=== PATIENT | female | born 1975 | race Caucasian/White ===

== ENCOUNTER 2018-07-12 01:01 | Emergency (ER) | payer OTHER ==
[2018-07-12] MEDS ORDERED: MAG HYDROX/AL HYDROX/SIMETH SUSP 30 ML UDCUP PO ONE (02:18)
[2018-07-12] MEDS ORDERED: METOCLOPRAMIDE HCL ORAL SOLN 10 MG/10 ML UDCUP PO ONE (02:18)
[2018-07-12] MEDS ORDERED: LIDOCAINE 2% VISCOUS SOLN 20 ML UDCUP PO ONE (02:18)
--- NOTE | 2018-07-12 02:28 | ER Document Report ---
ED General - General Mode of Arrival: Ambulatory Information source: Patient TRAVEL OUTSIDE OF THE [place] IN LAST 30 DAYS: No <HILL HAJI - Last Filed: 07/12/18 02:23> <CANDIDORC Maloney - Last Filed: 07/15/18 10:59> - General Chief Complaint: Abdominal Pain Stated Complaint: ABDOMINAL PAIN Time Seen by Provider: 07/12/18 02:17 Notes: Patient is a 43-year-old female presenting to the emergency department complaining of abdominal pain worsening a few days ago. Patient states that she has had similar abdominal pain for approximately 1 year but over the last couple of days it has progressively worsened. She describes the pain as a sharp and stabbing pain in her upper abdomen. She also complains of nausea and diarrhea and further states that she has bright red and dark red blood in her stool. There is a patient states that she does not feel as if her symptoms are related to heartburn further stating she does not have a burning sensation is or sour taste in her mouth. Patient denies any fevers or vomiting. Patient has a history of pancreatitis. (HILL HAJI) - Related Data Allergies/Adverse Reactions: penicillin G [Penicillin G] Allergy (Unverified 10/26/11 00:27) Past Medical History - General Information source: Patient - Social History Smoking Status: Current Every Day Smoker Chew tobacco use (# tins/day): No Frequency of alcohol use: None Drug Abuse: None Family History: CAD, Malignancy Patient has suicidal ideation: No Patient has homicidal ideation: No Neurological Medical History: Reports: Hx Migraine. Denies: Hx Seizures Musculoskeletal Medical History: Reports Hx Musculoskeletal Deformity, Reports Hx Musculoskeletal Trauma Traumatic Medical History: Reports: Hx Fractures Past Surgical History: Reports: Hx Cholecystectomy, Hx Genitourinary Surgery, Hx Gynecologic Surgery - right tube and ovary removed, Hx Hysterectomy, Hx Orthopedic Surgery - back fusion, carpal tunnel, Hx Tubal Ligation - Immunizations Immunizations up to date: Yes Hx Diphtheria, Pertussis, Tetanus Vaccination: Yes <HILL HAJI - Last Filed: 07/12/18 02:23> Review of Systems - Review of Systems Constitutional: No symptoms reported EENT: No symptoms reported Cardiovascular: No symptoms reported Respiratory: No symptoms reported Gastrointestinal: See HPI, Abdominal pain, Nausea, Blood streaked bowels Genitourinary: No symptoms reported Female Genitourinary: No symptoms reported Musculoskeletal: No symptoms reported Skin: No symptoms reported Hematologic/Lymphatic: No symptoms reported Neurological/Psychological: No symptoms reported -: Yes All other systems reviewed and negative <HILL HAJI - Last Filed: 07/12/18 02:23> Physical Exam <HILL HAJI - Last Filed: 07/12/18 02:23> <RC REY Amara - Last Filed: 07/15/18 10:59> - Vital signs Vitals: Temp Pulse Resp BP Pulse Ox 98.1 F 74 16 112/71 97 07/12/18 01:02 07/12/18 01:02 07/12/18 01:02 07/12/18 01:02 07/12/18 01:02 - Notes Notes: GENERAL: Alert, interacts well. No acute distress. HEAD: Normocephalic, atraumatic. EYES: Pupils equal, round, and reactive to light. Extraocular movements intact. ENT: Oral mucosa moist, tongue midline. NECK: Full range of motion. Supple. Trachea midline. LUNGS: Clear to auscultation bilaterally, no wheezes, rales, or rhonchi. No respiratory distress. HEART: Regular rate and rhythm. No murmurs, gallops, or rubs. ABDOMEN: Soft, RUQ and epigastric regions tender palpation. Non-distended. Bowel sounds present in all 4 quadrants. EXTREMITIES: Moves all 4 extremities spontaneously. NEUROLOGICAL: Alert and oriented x3. Normal speech. PSYCH: Normal affect, normal mood. SKIN: Warm, dry, normal turgor. No rashes or lesions noted. (HILL HAJI) Course <HILL HAJI - Last Filed: 07/12/18 02:23> - Laboratory Result Diagrams: 07/12/18 02:37 07/12/18 02:37 <RC REY Amara - Last Filed: 07/15/18 10:59> - Re-evaluation Re-evalutation: 07/12/18 03:40 Patient's labs show no acute abnormalities. She states the symptoms have been going on for approximately a year and a half intermittently and over the last several days she has experienced more severe flare. Instructed her that I will provide her nausea medication as well as zantac and she is to comply to a low- fat low acidic diet to see if this helps. If her symptoms are continuing I will provide her community care referral for further outpatient evaluation. Return precautions provided (RC REY) - Vital Signs Vital signs: Temp Pulse Resp BP Pulse Ox 97.6 F 74 16 140/85 H 97 07/12/18 04:08 07/12/18 04:08 07/12/18 04:08 07/12/18 04:08 07/12/18 04:08 Discharge <HILL HAJI - Last Filed: 07/12/18 02:23> <RC REY - Last Filed: 07/15/18 10:59> - Discharge Clinical Impression: Epigastric abdominal pain Condition: Good Disposition: HOME, SELF-CARE Instructions: Abdominal Pain ([facility]), Antinausea Medication ([facility]), Low-Fat Diet ( [facility]) Prescriptions: Ondansetron [Zofran Odt 4 mg Tablet] 1 tab PO Q4H PRN #15 tab.rapdis PRN Reason: For Nausea/Vomiting Ranitidine HCl [Zantac] 150 mg PO BID #60 tablet Referrals: [facility] [Outside] - Follow up as needed Scribe Attestation: 07/15/18 10:59 I personally performed the services described in the documentation, reviewed and edited the documentation which was dictated to the scribe in my presence, and it accurately records my words and actions. (RC REY) Scribe Documentation - Scribe Written by Yoseline:: Nasra Lim, 07/12/2018 02:26 acting as scribe for :: Candido <HILL HAJI - Last Filed: 07/12/18 02:23>
[2018-07-12 02:50] LABS: ABSOLUTE BASOPHILS # (AUTO) 0.1 10^3/uL (0.0-0.2); ABSOLUTE EOSINOPHILS # (AUTO) 0.1 10^3/uL (0.0-0.6); ABSOLUTE LYMPHOCYTES (AUTO) 1.5 10^3/uL (0.5-4.7); ABSOLUTE MONOCYTES (AUTO) 0.6 10^3/uL (0.1-1.4); ABSOLUTE NEUT (AUTO) 6.9 10^3/uL (1.7-8.2); BASOPHILS % (AUTO) 1.2 % (0-2); EOSINOPHILS % (AUTO) 1.6 % (0-6); HEMATOCRIT 39.6 % (36.0-47.0); HEMOGLOBIN 13.7 g/dL (12.0-15.5); LYMPHOCYTES % (AUTO) 16.6 % (13-45); MEAN CORPUSCULAR HEMOGLOBIN 28.5 pg (27.0-33.4); MEAN CORPUSCULAR HGB CONC 34.6 g/dL (32.0-36.0); MEAN CORPUSCULAR VOLUME 82 fl (80-97); MONOCYTES % (AUTO) 6.6 % (3-13); PLATELET COUNT 164 10^3/uL (150-450); RED CELL DISTRIBUTION WIDTH 13.6 % (11.5-14.0); TOTAL CELLS COUNTED % (AUTO) 100 %; WHITE BLOOD COUNT 9.3 10^3/uL (4.0-10.5)
[2018-07-12 03:07] LABS: ALANINE AMINOTRANSFERASE 17 U/L (9-52); ALKALINE PHOSPHATASE 61 U/L (38-126); ANION GAP 11 (5-19); ASPARTATE AMINO TRANSFERASE 14 U/L (14-36); BILIRUBIN,DIRECT 0.2 mg/dL (0.0-0.4); BILIRUBIN,TOTAL 0.4 mg/dL (0.2-1.3); BLOOD UREA NITROGEN 11 mg/dL (7-20); CALCIUM 9.6 mg/dL (8.4-10.2); CARBON DIOXIDE 29 mmol/L (22-30); CHLORIDE 104 mmol/L (98-107); GLUCOSE 110 mg/dL (75-110); POTASSIUM 4.1 mmol/L (3.6-5.0); SODIUM 143.6 mmol/L (137-145); TOTAL PROTEIN 6.7 g/dL (6.3-8.2)
[2018-07-12] MEDS ORDERED: HYDROCODONE/ACETAMINOPHEN 5-325 MG TABLET PO ONE (03:49)
[2018-07-12 04:09] VITALS: BP 140/85
== END 2018-07-12 04:11 | disposition home or self-care (01) ==
LOC: ER 01:01
DX: R10.13 Epigastric pain (principal); R11.0 Nausea; R19.7 Diarrhea, unspecified; R19.5 Other fecal abnormalities; F17.200 Nicotine dependence, unspecified, uncomplicated
CPT/HCPCS: 99284; 36415; 83690; 84703; 85025; 80053; J3490

== ENCOUNTER 2018-09-30 20:15 | Emergency (ER) | payer SELFPAY ==
[2018-09-30 21:27] LABS: ABSOLUTE LYMPHOCYTES (AUTO) 0.7 10^3/uL (0.5-4.7); ABSOLUTE MONOCYTES (AUTO) 0.4 10^3/uL (0.1-1.4); ABSOLUTE NEUT (AUTO) 2.8 10^3/uL (1.7-8.2); BASOPHILS % (AUTO) 0.4 % (0-2); HEMATOCRIT 36.8 % (36.0-47.0); HEMOGLOBIN 12.6 g/dL (12.0-15.5); LYMPHOCYTES % (AUTO) 16.6 % (13-45); MEAN CORPUSCULAR HEMOGLOBIN 28.3 pg (27.0-33.4); MEAN CORPUSCULAR HGB CONC 34.3 g/dL (32.0-36.0); MEAN CORPUSCULAR VOLUME 83 fl (80-97); MONOCYTES % (AUTO) 11.2 % (3-13); PLATELET COUNT 134 10^3/uL (150-450); RED BLOOD COUNT 4.46 10^6/uL (3.72-5.28); RED CELL DISTRIBUTION WIDTH 13.7 % (11.5-14.0); SEGMENTED NEUTROPHILS % (AUTO) 70.8 % (42-78); TOTAL CELLS COUNTED % (AUTO) 100 %
[2018-09-30 21:39] LABS: ALANINE AMINOTRANSFERASE 39 U/L (9-52); ALBUMIN 3.9 g/dL (3.5-5.0); ALKALINE PHOSPHATASE 65 U/L (38-126); ANION GAP 5 (5-19); ASPARTATE AMINO TRANSFERASE 25 U/L (14-36); BILIRUBIN,DIRECT 0.2 mg/dL (0.0-0.4); BILIRUBIN,TOTAL 0.5 mg/dL (0.2-1.3); BLOOD UREA NITROGEN 8 mg/dL (7-20); CALCIUM 8.9 mg/dL (8.4-10.2); CARBON DIOXIDE 32 mmol/L (22-30); CHLORIDE 101 mmol/L (98-107); GLUCOSE 102 mg/dL (75-110); POTASSIUM 3.9 mmol/L (3.6-5.0); SODIUM 137.8 mmol/L (137-145); TOTAL PROTEIN 6.2 g/dL (6.3-8.2)
[2018-09-30 21:41] LABS: APPEARANCE,URINE SLIGHTLY-CLOUDY; BILIRUBIN,URINE SMALL (NEGATIVE); COLOR,URINE YELLOW; GLUCOSE, URINE NEGATIVE (NEGATIVE); KETONES,URINE NEGATIVE (NEGATIVE); LEUKOCYTE ESTERASE,URINE NEGATIVE (NEGATIVE); NITRITE,URINE NEGATIVE (NEGATIVE); PROTEIN,URINE 30 mg/dL (NEGATIVE); URINE SPECIFIC GRAVITY 1.024
[2018-09-30] MEDS ORDERED: NORMAL SALINE 1000 ML 1,000 ML IV ONE (22:09)
[2018-09-30] MEDS ORDERED: ONDANSETRON HCL INJ/PF 4 MG/2 ML SDV IV ONE (22:09)
--- NOTE | 2018-09-30 22:11 | ER Document Report ---
ED Medical Screen (RME) - General Chief Complaint: Nausea/Vomiting Stated Complaint: VOMITING Time Seen by Provider: 09/30/18 22:08 Notes: Patient is a 43-year-old female presents to the emergency department for 24 hours of vomiting. Patient states she has vomited upwards of 20 times in the last 24 hours is now dry heaving. Patient notes no blood in her emesis. Patient is denying any diarrhea and states she does have a subjective fever. Patient is denying dysuria or vaginal discharge. Patient states she has generalized muscle cramping. Patient states that started after her vomiting. Past medical history: None Medications: None Allergies: Penicillin Surgical history: Hysterectomy, cholecystectomy ABDOMEN: Soft, generalized tenderness mostly upper left quadrant. Non- distended. Bowel sounds present in all 4 quadrants. No CVA tenderness bilaterally. No McBurney's point tenderness, no Michael sign noted. I have greeted and performed a rapid initial assessment of this patient. A comprehensive ED assessment and evaluation of the patient, analysis of test results and completion of the medical decision making process will be conducted by additional ED providers. TRAVEL OUTSIDE OF THE [place] IN LAST 30 DAYS: No - Related Data Allergies/Adverse Reactions: penicillin G [Penicillin G] Allergy (Unverified 10/26/11 00:27) Past Medical History - Social History Chew tobacco use (# tins/day): No Frequency of alcohol use: None Drug Abuse: None Neurological Medical History: Reports: Hx Migraine. Denies: Hx Seizures Renal/ Medical History: Denies: Hx Peritoneal Dialysis Musculoskeltal Medical History: Reports Hx Musculoskeletal Deformity, Reports Hx Musculoskeletal Trauma Traumatic Medical History: Reports: Hx Fractures Past Surgical History: Reports: Hx Cholecystectomy, Hx Genitourinary Surgery, Hx Gynecologic Surgery - right tube and ovary removed, Hx Hysterectomy, Hx Orthopedic Surgery - back fusion, carpal tunnel, Hx Tubal Ligation - Immunizations Immunizations up to date: Yes Hx Diphtheria, Pertussis, Tetanus Vaccination: Yes Physical Exam - Vital signs Vitals: Temp Pulse Resp BP Pulse Ox 98.6 F 80 16 134/81 H 96 09/30/18 20:44 09/30/18 20:44 09/30/18 20:44 09/30/18 20:44 09/30/18 20:44 Course - Vital Signs Vital signs: Temp Pulse Resp BP Pulse Ox 98.6 F 80 16 134/81 H 96 09/30/18 20:44 09/30/18 20:44 09/30/18 20:44 09/30/18 20:44 09/30/18 20:44 - Laboratory Result Diagrams: 09/30/18 21:15 09/30/18 21:15 Laboratory results interpreted by me: 09/30/18 09/30/18 09/30/18 21:15 21:15 21:15 Plt Count 134 L Carbon Dioxide 32 H Total Protein 6.2 L Urine Protein 30 H Urine Bilirubin SMALL H Urine Urobilinogen 4.0 H
[2018-09-30] MEDS ORDERED: KETOROLAC TROMETHAMINE INJ/PF 30 MG/1 ML SDV IV ONE (22:12)
--- NOTE | 2018-09-30 23:09 | ER Document Report ---
ED General - General Chief Complaint: Nausea/Vomiting Stated Complaint: VOMITING Time Seen by Provider: 09/30/18 22:08 Notes: Patient is a 43-year-old female presents to the emergency department for 24 hours of vomiting. Patient states she has vomited upwards of 20 times in the last 24 hours is now dry heaving. Patient notes no blood in her emesis. Patient is denying any diarrhea and states she does have a subjective fever. Patient is denying dysuria or vaginal discharge. Patient states she has generalized muscle cramping abd pain. Patient states that started after her vomiting. Past medical history: None Medications: None Allergies: Penicillin Surgical history: Hysterectomy, cholecystectomy TRAVEL OUTSIDE OF THE [place] IN LAST 30 DAYS: No - Related Data Allergies/Adverse Reactions: penicillin G [Penicillin G] Allergy (Unverified 10/26/11 00:27) Past Medical History - General Information source: Patient - Social History Smoking Status: Current Every Day Smoker Chew tobacco use (# tins/day): No Frequency of alcohol use: None Drug Abuse: None Family History: CAD, Malignancy Patient has suicidal ideation: No Patient has homicidal ideation: No Neurological Medical History: Reports: Hx Migraine. Denies: Hx Seizures Renal/ Medical History: Denies: Hx Peritoneal Dialysis Musculoskeletal Medical History: Reports Hx Musculoskeletal Deformity, Reports Hx Musculoskeletal Trauma Traumatic Medical History: Reports: Hx Fractures Past Surgical History: Reports: Hx Cholecystectomy, Hx Genitourinary Surgery, Hx Gynecologic Surgery - right tube and ovary removed, Hx Hysterectomy, Hx Orthopedic Surgery - back fusion, carpal tunnel, Hx Tubal Ligation - Immunizations Immunizations up to date: Yes Hx Diphtheria, Pertussis, Tetanus Vaccination: Yes Review of Systems - Review of Systems Constitutional: See HPI EENT: No symptoms reported Cardiovascular: No symptoms reported Respiratory: No symptoms reported Gastrointestinal: See HPI Genitourinary: See HPI Female Genitourinary: See HPI Musculoskeletal: No symptoms reported Skin: No symptoms reported Hematologic/Lymphatic: No symptoms reported Neurological/Psychological: No symptoms reported Physical Exam - Vital signs Vitals: Temp Pulse Resp BP Pulse Ox 98.6 F 80 16 134/81 H 96 09/30/18 20:44 09/30/18 20:44 09/30/18 20:44 09/30/18 20:44 09/30/18 20:44 - Notes Notes: GENERAL: Alert, interacts well. No acute distress. HEAD: Normocephalic, atraumatic. EYES: Pupils equal, round, and reactive to light. Extraocular movements intact. ENT: Oral mucosa moist, tongue midline. NECK: Full range of motion. Supple. Trachea midline. LUNGS: Clear to auscultation bilaterally, no wheezes, rales, or rhonchi. No resp iratory distress. HEART: Regular rate and rhythm. No murmur ABDOMEN: Soft, generalized left upper quadrant tenderness. Non-distended. Bowel sounds present in all 4 quadrants. No McBurney's point tenderness, no Michael sign noted. EXTREMITIES: Moves all 4 extremities spontaneously. No edema, normal radial and dorsalis pedis pulses bilaterally. No cyanosis. BACK: no cervical, thoracic, lumbar midline tenderness. No saddle anesthesia, normal distal neurovascular exam. No CVA tenderness noted bilaterally NEUROLOGICAL: Alert and oriented x3. Normal speech. cranial nerves II through XII grossly intact PSYCH: Normal affect, normal mood. SKIN: Warm, dry, normal turgor. No rashes or lesions noted. Course - Re-evaluation Re-evalutation: Labs show no signs of leukocytosis, no signs of anemia, no change in patient's sodium or potassium levels. Patient's specific gravity was 1.024. She was treated with normal saline solution in the emergency department for dehydration. There are no signs of urinary tract infection. Patient has had no further episodes of vomiting in the emergency room and is stating that her left upper quadrant abdominal pain has since resolved. Patient stable for discharge. - Vital Signs Vital signs: Temp Pulse Resp BP Pulse Ox 98.2 F 88 20 126/71 H 96 09/30/18 23:21 09/30/18 23:21 09/30/18 23:21 09/30/18 23:21 09/30/18 23:21 - Laboratory Result Diagrams: 09/30/18 21:15 09/30/18 21:15 Laboratory results interpreted by me: 09/30/18 09/30/18 09/30/18 21:15 21:15 21:15 Plt Count 134 L Carbon Dioxide 32 H Total Protein 6.2 L Lipase Urine Protein 30 H Urine Bilirubin SMALL H Urine Urobilinogen 4.0 H 09/30/18 21:15 Plt Count Carbon Dioxide Total Protein Lipase 13.8 L Urine Protein Urine Bilirubin Urine Urobilinogen Discharge - Discharge Clinical Impression: Dehydration Nausea & vomiting Qualifiers: Vomiting type: unspecified Vomiting Intractability: non-intractable Qualified Code(s): R11.2 - Nausea with vomiting, unspecified Condition: Stable Disposition: HOME, SELF-CARE Instructions: Prescribed Antidiarrhea Medications ([facility]), Dehydration ([facility]), Intravenous (IV) Fluids ([facility]), Vomiting ([facility]) Additional Instructions: As we discussed you have been seen and treated in the emergency department for nausea, vomiting and dehydration. Your labs reveal no signs of abnormalities at this time. We have rehydrated you and given you medicine for your generalized headache and vomiting. Please take medications as prescribed. Please drink plenty of fluids and get plenty of rest. Please return to the emergency room for any other concerning symptoms. Prescriptions: Ondansetron [Zofran Odt 4 mg Tablet] 1 - 2 tab PO Q4H PRN #15 tab.rapdis PRN Reason: For Nausea/Vomiting Forms: Return to Work
[2018-09-30] MEDS ORDERED: ONDANSETRON ODT 4 MG TAB (6 TAB/ER DISP) PO PRN (23:10)
[2018-09-30 23:23] VITALS: BP 126/71
== END 2018-09-30 23:23 | disposition home or self-care (01) ==
LOC: ER 20:15
DX: E86.0 Dehydration (principal); R11.2 Nausea with vomiting, unspecified; F17.200 Nicotine dependence, unspecified, uncomplicated; Z88.0 Allergy status to penicillin; Z90.710 Acquired absence of both cervix and uterus; Z90.49 Acquired absence of other specified parts of digestive tract; Z98.1 Arthrodesis status
CPT/HCPCS: 99284; 96361; 96374; 96375; 36415; 83690; 85025; 80053; 81001; J1885; J2405; J7030

== ENCOUNTER 2018-12-27 16:54 | Emergency (ER) | payer SELFPAY ==
--- NOTE | 2018-12-27 17:35 | ER Document Report ---
ED Medical Screen (RME) - General Chief Complaint: Skin Problem Stated Complaint: SWOLLEN LEGS Time Seen by Provider: 12/27/18 17:29 Mode of Arrival: Ambulatory Information source: Patient Notes: 43-year-old female presented to ED for complaint of bilateral leg swelling redness and pain. She states she does not know why they started swollen about a week ago. She states she thought she had a blood sugar but her Accu-Chek was normal. She states she has a history of high blood pressure that she sometimes takes lisinopril for. She states she has had a back fusion a hysterectomy carpal tunnel surgery gallbladder surgery and ectopic pregnancies removed. She does smoke a pack a day and drinks maybe once or twice a year. Patient is alert oriented respirations regular and unlabored speaking in full sentences walks with a even steady gait. I have greeted and performed a rapid initial assessment of this patient. A comprehensive ED assessment and evaluation of the patient, analysis of test results and completion of medical decision making process will be conducted by an additional ED providers. TRAVEL OUTSIDE OF THE [place] IN LAST 30 DAYS: No - Related Data Allergies/Adverse Reactions: penicillin G [Penicillin G] Allergy (Verified 12/27/18 17:01) Past Medical History - Social History Frequency of alcohol use: None Drug Abuse: None - Past Medical History Cardiac Medical History: Reports: Hx Hypertension Neurological Medical History: Reports: Hx Migraine. Denies: Hx Seizures Renal/ Medical History: Denies: Hx Peritoneal Dialysis Musculoskeltal Medical History: Reports Hx Musculoskeletal Deformity, Reports Hx Musculoskeletal Trauma Traumatic Medical History: Reports: Hx Fractures Past Surgical History: Reports: Hx Cholecystectomy, Hx Genitourinary Surgery, Hx Gynecologic Surgery - right tube and ovary removed, Hx Hysterectomy, Hx Orthopedic Surgery - back fusion, carpal tunnel, Hx Tubal Ligation - Immunizations Immunizations up to date: Yes Hx Diphtheria, Pertussis, Tetanus Vaccination: Yes Physical Exam - Vital signs Vitals: Temp Pulse Resp BP Pulse Ox 98.2 F 89 20 126/68 H 96 12/27/18 17:05 12/27/18 17:05 12/27/18 17:05 12/27/18 17:05 12/27/18 17:05 Course - Vital Signs Vital signs: Temp Pulse Resp BP Pulse Ox 98.2 F 89 20 126/68 H 96 12/27/18 17:05 12/27/18 17:05 12/27/18 17:05 12/27/18 17:05 12/27/18 17:05
[2018-12-27 17:56] LABS: ABSOLUTE BASOPHILS # (AUTO) 0.1 10^3/uL (0.0-0.2); ABSOLUTE EOSINOPHILS # (AUTO) 0.1 10^3/uL (0.0-0.6); ABSOLUTE LYMPHOCYTES (AUTO) 1.4 10^3/uL (0.5-4.7); ABSOLUTE MONOCYTES (AUTO) 0.7 10^3/uL (0.1-1.4); ABSOLUTE NEUT (AUTO) 5.3 10^3/uL (1.7-8.2); BASOPHILS % (AUTO) 0.8 % (0-2); EOSINOPHILS % (AUTO) 1.9 % (0-6); HEMATOCRIT 37.4 % (36.0-47.0); HEMOGLOBIN 12.7 g/dL (12.0-15.5); LYMPHOCYTES % (AUTO) 18.6 % (13-45); MEAN CORPUSCULAR VOLUME 82 fl (80-97); MONOCYTES % (AUTO) 9.4 % (3-13); PLATELET COUNT 198 10^3/uL (150-450); RED BLOOD COUNT 4.54 10^6/uL (3.72-5.28); SEGMENTED NEUTROPHILS % (AUTO) 69.3 % (42-78); TOTAL CELLS COUNTED % (AUTO) 100 %; WHITE BLOOD COUNT 7.6 10^3/uL (4.0-10.5)
[2018-12-27 18:12] LABS: ALANINE AMINOTRANSFERASE 27 U/L (9-52); ALBUMIN 3.8 g/dL (3.5-5.0); ALKALINE PHOSPHATASE 74 U/L (38-126); ANION GAP 5 (5-19); ASPARTATE AMINO TRANSFERASE 24 U/L (14-36); BILIRUBIN,DIRECT 0.3 mg/dL (0.0-0.4); BILIRUBIN,TOTAL 0.7 mg/dL (0.2-1.3); BLOOD UREA NITROGEN 7 mg/dL (7-20); CALCIUM 9.3 mg/dL (8.4-10.2); CARBON DIOXIDE 32 mmol/L (22-30); CHLORIDE 103 mmol/L (98-107); GLUCOSE 94 mg/dL (75-110); POTASSIUM 4.4 mmol/L (3.6-5.0); TOTAL PROTEIN 6.8 g/dL (6.3-8.2)
[2018-12-27] MEDS ORDERED: FUROSEMIDE 40 MG TABLET PO ONE (20:57)
[2018-12-27] MEDS ORDERED: TRAMADOL HCL 50 MG TABLET PO ONE (20:57)
--- NOTE | 2018-12-27 21:00 | ER Document Report ---
ED General - General Chief Complaint: Skin Problem Stated Complaint: SWOLLEN LEGS Time Seen by Provider: 12/27/18 17:29 Mode of Arrival: Ambulatory Notes: Patient is a 43-year-old female with past medical history of morbid obesity, central attention who presents with 1-2 weeks of progressive worsening bilateral lower extremity edema. She describes this as being gradual onset, progressively worsening since onset. Associate with a mild to moderate throbbing, aching, constant pain. Nothing has been noted to improve or worsen her symptoms. Denies a history of similar symptoms in the past. She has not seen her primary care physician regarding today's concerns. Does note that she has a history of essential hypertension but has not been taking her prescribed antihypertensive medications. She denies any history of DVT, PE, coagulopathy. Denies orthopnea, shortness of breath, chest pain, fever or constitutional symptoms. Nothing is new or different about her symptoms that resulted in a visit to the emergency department today. TRAVEL OUTSIDE OF THE [place] IN LAST 30 DAYS: No - Related Data Allergies/Adverse Reactions: penicillin G [Penicillin G] Allergy (Verified 12/27/18 17:01) Past Medical History - General Information source: Patient - Social History Smoking Status: Current Every Day Smoker Frequency of alcohol use: None Drug Abuse: None Lives with: Family Family History: CAD, Malignancy Patient has suicidal ideation: No Patient has homicidal ideation: No - Past Medical History Cardiac Medical History: Reports: Hx Hypertension Neurological Medical History: Reports: Hx Migraine. Denies: Hx Seizures Renal/ Medical History: Denies: Hx Peritoneal Dialysis Musculoskeletal Medical History: Reports Hx Musculoskeletal Deformity, Reports Hx Musculoskeletal Trauma Traumatic Medical History: Reports: Hx Fractures Past Surgical History: Reports: Hx Cholecystectomy, Hx Genitourinary Surgery, Hx Gynecologic Surgery - right tube and ovary removed, Hx Hysterectomy, Hx Orthopedic Surgery - back fusion, carpal tunnel, Hx Tubal Ligation - Immunizations Immunizations up to date: Yes Hx Diphtheria, Pertussis, Tetanus Vaccination: Yes Review of Systems - Review of Systems Notes: Constitutional: Negative for fever. HENT: Negative for sore throat. Eyes: Negative for visual changes. Cardiovascular: Negative for chest pain. Respiratory: Negative for shortness of breath. Gastrointestinal: Negative for abdominal pain, vomiting or diarrhea. Genitourinary: Negative for dysuria. Musculoskeletal: Positive for bilateral lower extremity pain below the level of the knees with associated edema Skin: Positive for erythema to bilateral lower extremities Neurological: Negative for headaches, weakness or numbness. 10 point ROS negative except as marked above and in HPI. Physical Exam - Vital signs Vitals: Temp Pulse Resp BP Pulse Ox 98.2 F 89 20 126/68 H 96 12/27/18 17:05 12/27/18 17:05 12/27/18 17:05 12/27/18 17:05 12/27/18 17:05 Interpretation: Normal Notes: PHYSICAL EXAMINATION: GENERAL: Well-appearing, well-nourished and in no acute distress. HEAD: Atraumatic, normocephalic. EYES: Pupils equal round and reactive to light, extraocular movements intact, sclera anicteric, conjunctiva are normal. ENT: nares patent, oropharynx clear without exudates. Moist mucous membranes. NECK: Normal range of motion, supple without lymphadenopathy LUNGS: Breath sounds clear to auscultation bilaterally and equal. No wheezes rales or rhonchi. HEART: Regular rate and rhythm without murmurs ABDOMEN: Soft, morbidly obese abdomen, nontender, normoactive bowel sounds. No guarding, no rebound. No masses appreciated. EXTREMITIES: Normal range of motion, 4+ pitting edema in the bilateral lower extremities to the level of the knee that is equal and symmetric. No cyanosis. NEUROLOGICAL: No focal neurological deficits. Moves all extremities spontaneously and on command. PSYCH: Normal mood, normal affect. SKIN: Warm, Dry, normal turgor, mild diffuse erythema in the bilateral lower extremities again that is equal and symmetric Course - Re-evaluation Re-evalutation: 12/27/18 20:58 Patient presents with bilateral lower extremity erythema, edema and pain. Most consistent with stasis dermatitis. I do not suspect an acute cellulitis based on exam and history. Likewise acute DVT seems highly improbable given the bilateral nature and symmetric nature of the edema and erythema. Labs are not compatible nor is history with CHF, renal failure or liver failure. Patient does not have swelling above the level of the knees and the duration and characterization of her swelling is not consistent with a complete IVC occlusion with a thrombus. Patient is morbidly obese and I discussed the need for urgent weight loss to reduce the chronic nature of the lower extremity edema and additional health complications. At this time will discharge with return pr ecautions and follow-up recommendations. Verbal discharge instructions given a the bedside and opportunity for questions given. Medication warnings reviewed. Patient is in agreement with this plan and has verbalized understanding of return precautions and the need for primary care follow-up in the next 24-72 hours. - Vital Signs Vital signs: Temp Pulse Resp BP Pulse Ox 98.2 F 89 20 126/68 H 96 12/27/18 17:05 12/27/18 17:05 12/27/18 17:05 12/27/18 17:05 12/27/18 17:05 - Laboratory Result Diagrams: 12/27/18 17:40 12/27/18 17:40 Laboratory results interpreted by me: 12/27/18 12/27/18 17:40 17:40 Carbon Dioxide 32 H NT-Pro-B Natriuret Pep 481 H - Diagnostic Test Radiology reviewed: Reports reviewed Discharge - Discharge Clinical Impression: Morbid obesity, Bilateral lower extremity edema Condition: Good Disposition: HOME, SELF-CARE Additional Instructions: Please wear compression stockings on both your legs throughout the day to help reduce the swelling in your legs. As we discussed, focus on weight loss gradually over the next several years to reduce the need to continue to wear compression stockings and to have an overall healthier life. This will also help prevent worsening complications from your weight. Return if you develop worsening pain on one side, fever greater than 101F, vomiting, weakness, numbness or any other symptoms that are concerning to you. Prescriptions: Furosemide [Lasix 20 mg Tablet] 20 mg PO QAM #14 tablet
[2018-12-27 21:47] VITALS: BP 123/82
--- NOTE | 2018-12-28 03:07 | RADIOLOGY REPORT (SQ) ---
EXAM DESCRIPTION: US EXTREMITY VEINS BILATERAL COMPLETED DATE/TME: 12/27/2018 17:32 CLINICAL HISTORY: 43 years Female, pain swelling erythema Comparison: None. LIMITATIONS: Swelling. FINDINGS: RIGHT: Color doppler sonogram and compression maneuvers throughout the deep venous system of the right lower extremity show no evidence of thrombus including evaluation of the common femoral vein, superficial femoral vein, popliteal vein, and posterior tibial vein. Peroneal vein not visualized bilaterally. LEFT: Color doppler sonogram and compression maneuvers throughout the deep venous system of the left lower extremity show no evidence of thrombus including evaluation of the common femoral vein, superficial femoral vein, popliteal vein, and posterior tibial vein. Peroneal vein not visualized bilaterally. IMPRESSION: No DVT of the bilateral lower extremities. Limitation.
== END 2018-12-27 21:49 | disposition home or self-care (01) ==
LOC: ER 16:54
DX: R60.0 Localized edema (principal); M79.662 Pain in left lower leg; M79.661 Pain in right lower leg; E66.01 Morbid (severe) obesity due to excess calories; L53.9 Erythematous condition, unspecified; I10 Essential (primary) hypertension; T46.5X6A Underdosing of other antihypertensive drugs, initial encounter; Z91.14 Patient's other noncompliance with medication regimen; F17.200 Nicotine dependence, unspecified, uncomplicated; Z88.0 Allergy status to penicillin
CPT/HCPCS: 36415; 80053; 82962; 83880; 85025; 93970; 99284